=== PATIENT | female | born 1990 | race Two or more races ===

== ENCOUNTER 2019-02-12 16:37 | Inpatient (IN) | payer OTHER ==
[~2019-02-12] VITALS: Ht 162.6 cm; Wt 80.3 kg
[2019-02-12] MEDS ORDERED: PRENATAL TABLE1 EAC3 PO (18:00)
== END 2019-02-14 09:34 | disposition home or self-care (01) | DRG 833 ==
LOC: EDBD 16:37 → LDR 16:37 → OB/GYN 02-13 08:10
PROVIDERS: ADMIT Obstetrics & Gynecology
PROC: BW40ZZZ Ultrasonography of Abdomen (ICD-10-PCS; principal; 2019-02-12)
PROC: 4A1HXCZ Monitoring of Products of Conception, Cardiac Rate, External Approach (ICD-10-PCS; 2019-02-12)
PROC: BY4CZZZ Ultrasonography of Second Trimester, Single Fetus (ICD-10-PCS; 2019-02-12)
DX: O99.612 Diseases of the digestive system complicating pregnancy, second trimester (principal); R10.13 Epigastric pain; K80.20 Calculus of gallbladder without cholecystitis without obstruction

== ENCOUNTER 2019-05-10 14:58 | Outpatient (CLI) | payer OTHER ==
[~2019-05-10 14:58] MED LIST: PRENATAL TABLE1 EAC3 PO
== END 2019-05-10 15:00 | disposition home or self-care (01) ==
LOC: NST 14:58
DX: Z34.83 Encounter for supervision of other normal pregnancy, third trimester (principal)

== ENCOUNTER 2019-05-22 16:37 | Outpatient (CLI) | payer OTHER | END 2019-05-22 16:46 | disposition home or self-care (01) | LOC: LAB 16:37 | DX: Z34.83 Encounter for supervision of other normal pregnancy, third trimester (principal) ==

== ENCOUNTER 2019-05-25 14:15 | Inpatient (IN) | payer OTHER ==
[~2019-05-25] VITALS: Ht 162.6 cm; Wt 86.2 kg
== END 2019-06-23 12:30 | disposition home or self-care (01) | DRG 788 ==
LOC: OB/GYN 06-13 14:15 → LDR 06-20 06:14 → OB/GYN 06-20 19:14
PROVIDERS: ADMIT Obstetrics & Gynecology
PROC: 3E033VJ Introduction of Other Hormone into Peripheral Vein, Percutaneous Approach (ICD-10-PCS; 2019-06-20)
PROC: 4A1HXCZ Monitoring of Products of Conception, Cardiac Rate, External Approach (ICD-10-PCS; 2019-06-20)
PROC: 10D00Z1 Extraction of Products of Conception, Low, Open Approach (ICD-10-PCS; principal; 2019-06-20 18:00)
DX: O82 Encounter for cesarean delivery without indication (principal); O65.4 Obstructed labor due to fetopelvic disproportion, unspecified; Z3A.40 40 weeks gestation of pregnancy; Z37.0 Single live birth

== ENCOUNTER 2019-06-14 09:50 | Outpatient (CLI) | payer OTHER | END 2019-06-14 10:50 | disposition home or self-care (01) | LOC: NST 09:50 | DX: Z34.83 Encounter for supervision of other normal pregnancy, third trimester (principal) ==

== ENCOUNTER 2020-02-15 08:29 | Outpatient (CLI) | payer OTHER | END 2020-02-15 08:38 | disposition home or self-care (01) | LOC: SONOGRAMA 08:29 | DX: R10.11 Right upper quadrant pain (principal); K80.80 Other cholelithiasis without obstruction ==